=== PATIENT | male | born 1945 | race Caucasian/White ===

== ENCOUNTER 2020-09-19 10:05 | Day surgery (SDC) | payer MEDICARE, BC ==
[~2020-09-19 10:05] MED LIST: Lactated Ringers 1,000 ML IV SCH; Sodium Chloride 0.9% 10 ML Syringe FLUSH PRN
[2020-09-19] MEDS ORDERED: Propofol 200 MG/20 ML SDV ONE ×2 (11:47→12:40)
--- NOTE | 2020-09-19 12:37 | PCM.PN ---
- General Info Date of Service: 09/19/20 - Review of Systems Systems Review Comment:: 74-year-old male with history of colon polyps here for surveillance colonoscopy. He is medically stable to proceed today. His recent history and physical is reviewed and no significant changes are noted. I have discussed the proposed colonoscopy with the patient. He has questions were answered. He agrees to proceed accepting risks. The patient denies any recent rectal bleeding or changes in bowel pattern. - Patient Data Vitals - Most Recent: Last Vital Signs Temp 98.6 F 09/19/20 10:57 Pulse 65 09/19/20 10:57 Resp 20 09/19/20 10:57 BP 136/67 09/19/20 10:57 Pulse Ox 99 09/19/20 10:57 Weight - Most Recent: 86.183 kg Med Orders - Current: Current Medications Lactated Ringer's (Ringers, Lactated) 1,000 mls @ 125 mls/hr IV ASDIRECTED RADHA Last Admin: 09/19/20 11:12 Dose: 125 mls/hr Documented by: Sodium Chloride (Sodium Chloride 0.9% 10 Ml Syringe) 10 ml FLUSH ASDIRECTED PRN PRN Reason: Keep Vein Open Discontinued Medications Propofol (Propofol 200 Mg/20 Ml Sdv) Confirm Administered Dose 400 mg .ROUTE .STK-MED ONE Stop: 09/19/20 11:48 Sepsis Event Note - Focused Exam Vital Signs: Vital Signs Temp Pulse Resp BP Pulse Ox 09/19/20 10:57 98.6 F 65 20 136/67 99 - Problem List Review Problem List Initiated/Reviewed/Updated: Yes - Assessment Assessment:: History of colon polyps - Plan Plan:: Colonoscopy
--- NOTE | 2020-09-19 13:23 | PCM.OPNOTE ---
- General Post-Op/Procedure Note Date of Surgery/Procedure: 09/19/20 Operative Procedure(s): Colonoscopy with polypectomy Findings: Small cecal polyp Moderate sigmoid diverticulosis without acute inflammation Internal hemorrhoids Pre Op Diagnosis: History of colon polyps Post-Op Diagnosis: Sigmoid diverticulosis. Colon polyp. Hemorrhoids Anesthesia Technique: MAC Primary Surgeon: Michael Sun Pathology: Colon polyp EBL in mLs: 2 Complications: None Condition: Good
--- NOTE | 2020-09-19 15:53 | OR ---
Date of Procedure: 09/19/2020 PREOPERATIVE DIAGNOSIS: History of colon polyps. POSTOPERATIVE DIAGNOSES: Colon polyp, sigmoid diverticulosis, hemorrhoids. OPERATION PERFORMED: Colonoscopy with polypectomy. INDICATIONS FOR SURGERY: This 74-year-old male has a known history of colon polyps and comes today for surveillance colonoscopy. FINDINGS: A single small polyp is noted in the cecum. It is 5 mm in size and sessile in configuration. The patient also has a moderate degree of diverticulosis in the sigmoid region, which does not appear to be acutely inflamed or otherwise complicated. He also has some moderate internal hemorrhoids with small amount of anal narrowing. DESCRIPTION OF PROCEDURE: The patient was taken to the operating room. He was given intravenous sedation, and with him in the left lateral decubitus position, digital rectal exam was performed. No rectal masses were noted. The Olympus colonoscope was inserted into the rectum and retroflexed examination of the rectal canal was performed. The scope was then carefully advanced under direct visualization through the entire length of the colon until the cecum was reached. Cecal acquisition was confirmed by noting the normal internal cecal anatomy including the appendiceal orifice and the ileocecal valve. The cecum was carefully examined, and in the cecum, a small polyp was identified. This was removed in its entirety with cold biopsy forceps. The specimen was retrieved. Examination was then continued sequentially re-examining the colonic segments until the entire colon and rectum had been fully examined. The scope was removed and the patient was taken from the operating room in satisfactory condition. ESTIMATED BLOOD LOSS: 2 mL. COMPLICATIONS: None. PROGNOSIS: Good. STEPHANE Sun MD /[id number]
[2020-09-19 16:47] VITALS: BP 123/71; PULSE 65
== END 2020-09-19 14:17 | disposition home or self-care (01) ==
LOC: LL.SDS 10:05
PROVIDERS: ATTEND Surgery
DX: Z12.11 Encounter for screening for malignant neoplasm of colon (principal); D12.0 Benign neoplasm of cecum; K57.30 Diverticulosis of large intestine without perforation or abscess without bleeding; K64.8 Other hemorrhoids; I10 Essential (primary) hypertension; E78.5 Hyperlipidemia, unspecified; K21.9 Gastro-esophageal reflux disease without esophagitis
CPT/HCPCS: 00811; 88305; J2704; J7120

== ENCOUNTER 2023-08-05 11:07 | Day surgery (SDC) | payer MEDICARE, BC ==
[~2023-08-05 11:07] MED LIST changes: -Lactated Ringers 1,000 ML IV SCH; +Midazolam 1 MG/ML 2 ML SDV ONE; +Propofol 200 MG/20 ML SDV ONE; -Sodium Chloride 0.9% 10 ML Syringe FLUSH PRN
[2023-08-05] MEDS: Lactated Ringers 1,000 ML IV SCH (11:57)
[2023-08-05] MEDS ORDERED: Sodium Chloride 0.9% 10 ML Syringe FLUSH PRN (12:00)
[2023-08-05] MEDS ORDERED: Propofol 200 MG/20 ML SDV IV ONE (13:07)
[2023-08-05 14:59] VITALS: BP 94/69; PULSE 78
== END 2023-08-05 14:10 | disposition home or self-care (01) ==
LOC: LL.SDS 11:07
PROVIDERS: ATTEND Surgery
DX: Z12.11 Encounter for screening for malignant neoplasm of colon (principal); K57.30 Diverticulosis of large intestine without perforation or abscess without bleeding; I10 Essential (primary) hypertension; K21.9 Gastro-esophageal reflux disease without esophagitis; E78.5 Hyperlipidemia, unspecified; Z86.010 Personal history of colon polyps; Z79.899 Other long term (current) drug therapy
CPT/HCPCS: G0105; J2250; J2704; J7120